=== PATIENT | male | born 1980 | race Caucasian/White ===

== ENCOUNTER 2024-02-11 18:37 | Emergency (ER) | payer MEDICAID ==
[~2024-02-11] VITALS: Ht 172.7 cm; Wt 86.2 kg
[~2024-02-11 18:37] MED LIST: CALC500C17 PO; PEP15L PO
[2024-02-11 18:51] VITALS: BP 131/86; PULSE 108; RESP 18; TEMP 98.6; O2SAT 97
[2024-02-11] MEDS ORDERED: ONDA-188 SL (20:57)
[2024-02-11 20:59] VITALS: BP 149/88; PULSE 90; RESP 16; TEMP 98.2; O2SAT 97
== END 2024-02-11 20:59 | disposition home or self-care (01) ==
LOC: MED 18:37
DX: S09.90XA Unspecified injury of head, initial encounter (principal); F07.81 Postconcussional syndrome; Z79.899 Other long term (current) drug therapy; W18.09XA Striking against other object with subsequent fall, initial encounter; Y93.89 Activity, other specified; Y92.89 Other specified places as the place of occurrence of the external cause; Y99.8 Other external cause status
CPT/HCPCS: 70450; 99284